=== PATIENT | male | born 1975 | race Caucasian/White ===

== ENCOUNTER 2018-04-20 10:41 | Emergency (ER) | payer BC, OTHER ==
[~2018-04-20] VITALS: Ht 185.4 cm; Wt 68.0 kg
[2018-04-20] MEDS ORDERED: TRIMETHOPRIM/SULFAMETHOXAZOLE 160-800 MG TAB PO ONE (11:30)
[2018-04-20] MEDS ORDERED: DOXYCYCLINE HYCLATE TABLET 100 MG TAB PO ONE (11:30)
[2018-04-20 11:55] VITALS: BP 143/89
== END 2018-04-20 11:54 | disposition home or self-care (01) ==
LOC: FSED 10:41
DX: S61.432A Puncture wound without foreign body of left hand, initial encounter (principal); W45.8XXA Other foreign body or object entering through skin, initial encounter; Y92.008 Other place in unspecified non-institutional (private) residence as the place of occurrence of the external cause
CPT/HCPCS: 99283

== ENCOUNTER 2018-05-19 10:09 | Emergency (ER) | payer BC, OTHER ==
[~2018-05-19] VITALS: Ht 185.4 cm; Wt 68.0 kg
[2018-05-19] MEDS ORDERED: BACTRIM DS TAB1 EACH PO (11:37)
[2018-05-19] MEDS ORDERED: PREDNISONE20 MG PO (11:38)
[2018-05-19 11:42] VITALS: BP 144/63
== END 2018-05-19 11:48 | disposition home or self-care (01) ==
LOC: FSED 10:09
DX: L24.9 Irritant contact dermatitis, unspecified cause (principal); L03.116 Cellulitis of left lower limb; F17.210 Nicotine dependence, cigarettes, uncomplicated
CPT/HCPCS: 99283

== ENCOUNTER 2019-03-02 19:21 | Emergency (ER) | payer BC, OTHER ==
[~2019-03-02] VITALS: Ht 185.4 cm; Wt 72.6 kg
[~2019-03-02 19:21] MED LIST: BACTRIM DS TAB1 EACH PO; PREDNISONE20 MG PO
[2019-03-02] MEDS ORDERED: DEXAMETHASONE SOD PHOS 10 MG/1 ML VIAL IM ONE (19:30)
== END 2019-03-02 19:45 | disposition home or self-care (01) ==
LOC: FSED 19:21
DX: L24.5 Irritant contact dermatitis due to other chemical products (principal); L73.9 Follicular disorder, unspecified
CPT/HCPCS: 99283; J1100

== ENCOUNTER 2019-03-10 12:42 | Emergency (ER) | payer BC, OTHER ==
[~2019-03-10] VITALS: Ht 185.4 cm; Wt 72.6 kg
[2019-03-10] MEDS ORDERED: SODIUM CHLORIDE 0.9% 1000ML 1,000 ML ONE (12:54)
[2019-03-10] MEDS ORDERED: FAMOTIDINE 20 MG/2 ML VIAL IV ONE (12:54)
[2019-03-10] MEDS ORDERED: METHYLPREDNISOLONE SOD SUCC 125 MG/2ML VIAL ONE (12:55)
[2019-03-10] MEDS ORDERED: FAMOTIDINE 20 MG/2 ML VIAL IV STA (12:57)
[2019-03-10] MEDS ORDERED: METHYLPREDNISOLONE SOD SUCC 125 MG/2ML VIAL IV ONE (13:00)
[2019-03-10] MEDS ORDERED: SODIUM CHLORIDE 0.9% 1000ML 1,000 ML IV ONE (13:00)
== END 2019-03-10 13:20 | disposition home or self-care (01) ==
LOC: FSED 12:42
DX: L50.0 Allergic urticaria (principal); T37.0X4A Poisoning by sulfonamides, undetermined, initial encounter
CPT/HCPCS: 99283; J2930; J7030

== ENCOUNTER 2019-04-07 11:05 | Emergency (ER) | payer BC, OTHER ==
[~2019-04-07] VITALS: Ht 185.4 cm; Wt 70.3 kg
[2019-04-07] MEDS ORDERED: PREDNISONE 20 MG TAB PO ONE (12:00)
[2019-04-07] MEDS ORDERED: DIPHENHYDRAMINE HCL INJ 50 MG/ML VIAL IM ONE (12:00)
[2019-04-07] MEDS ORDERED: PREDNISONE 20 MG TAB ONE (12:24)
[2019-04-07] MEDS ORDERED: DIPHENHYDRAMINE HCL INJ 50 MG/ML VIAL ONE (12:25)
[2019-04-07 13:13] VITALS: BP 137/90
== END 2019-04-07 13:23 | disposition home or self-care (01) ==
LOC: FSED 11:05
DX: L50.0 Allergic urticaria (principal); T39.314A Poisoning by propionic acid derivatives, undetermined, initial encounter; F17.210 Nicotine dependence, cigarettes, uncomplicated
CPT/HCPCS: 99283; J1200; J7512